=== PATIENT | male | born 1955 | race African-American/Black ===

== ENCOUNTER 2017-11-27 10:35 | Emergency (ER) | payer OTHER ==
[~2017-11-27] VITALS: Ht 188 cm; Wt 113.6 kg
[~2017-11-27 10:35] MED LIST: AMBIEN 10MG10 MG PO; NIASPAN 500MG500 MG; NIASPAN1000 MG PO; NORCO 325 MG-101 TAB; NORCO 325 MG-7.1 TAB PO; NORVASC 10MG10 MG PO; TENORMIN100 MG; [UNRECOGNIZED DRUG - REMARK]
[2017-11-27 10:37] VITALS: TEMP 97.7
[2017-11-27 11:29] LABS: COLLECTION METHOD CLEAN CATCH
[2017-11-27 11:35] LABS: BASO % 0.3 % (0.0-2.0); EOS # 0.1 (0.0-0.7); GRAN # 3.4 (1.4-6.5); GRAN % 55.3 % (42.2-75.2); HEMATOCRIT 43.9 % (42.0-52.0); HEMOGLOBIN 14.6 g/dl (13.5-18.0); LYMPH # 1.9 (1.2-3.4); LYMPH % 31.1 % (20.0-51.0); MEAN CELL VOLUME 86 fl (80.0-100.0); MEAN CORPUSCULAR HEMOGLOBIN 29 pg (27.0-31.0); MEAN CORPUSCULAR HGB CONC 33 g/dl (33.0-37.0); MEAN PLATELET VOLUME 10.8 fl (7.4-10.4); MONO # 0.7 (0.1-0.6); PLATELET COUNT 164 K/mm3 (130-400); REDCELL DISTRIBUTION WIDTH-CV 13.2 % (11.5-14.5)
[2017-11-27 11:39] LABS: PH 6 (5-8); SQUAMOUS EPITHELIAL None Seen /hpf; URINE APPEARANCE Clear; URINE BACTERIA None Seen /hpf; URINE BILIRUBIN Negative (NEGATIVE); URINE BLOOD Negative (NEGATIVE); URINE COLOR Yellow; URINE GLUCOSE Negative (NEGATIVE); URINE KETONE Negative (NEGATIVE); URINE LEUKOCYTE ESTERASE Negative (NEGATIVE); URINE NITRATE Negative (NEGATIVE); URINE PROTEIN(semi-quant) Negative (NEGATIVE); URINE RBC 0-2 /hpf; URINE UROBILINOGEN Negative (NEGATIVE)
[2017-11-27 11:42] LABS: ALANINE AMINOTRANSFERASE 48 U/L (21-72); ALBUMIN 4.6 gm/dL (3.5-5.0); ALKALINE PHOSPHATASE 67 U/L (50-136); ANION GAP 9 mmol/L (7-16); AST,SGOT 51 U/L (15-37); BILIRUBIN,TOTAL 0.4 mg/dL (0.0-1.0); BLOOD UREA NITROGEN 15 mg/dL (9-20); CALCIUM 9.4 mg/dL (8.4-10.2); CARBON DIOXIDE 24 mmol/L (22-30); CHLORIDE 105 mmol/L (98-107); CREATININE, serum 1.24 mg/dL (0.66-1.25); GLUCOSE 147 mg/dL (74-106); POTASSIUM 3.5 mmol/L (3.4-5.0); SODIUM 138 mmol/L (137-145)
[2017-11-27] MEDS ORDERED: ADVIL200 MG PO (11:42)
[2017-11-27 11:43] LABS: C-REACTIVE PROTEIN < 0.5 mg/dL (0.0-0.9)
[2017-11-27] MEDS ORDERED: FLOMAX 0.40.4 MG/CAP PO (11:43)
[2017-11-27] MEDS ORDERED: BACTRIM 400 MG-1 TAB PO (11:43)
[2017-11-27 12:55] VITALS: BP 135/69; PULSE 68
== END 2017-11-27 13:09 | disposition home or self-care (01) ==
LOC: COL.ER 10:35
PROVIDERS: Emergency Medicine
DX: R10.31 Right lower quadrant pain (principal); R33.9 Retention of urine, unspecified; I10 Essential (primary) hypertension; Z87.448 Personal history of other diseases of urinary system
CPT/HCPCS: A4314; J1170; J2405; J7030

== ENCOUNTER → 2019-10-07 | Outpatient (CLI) | payer MEDICARE, OTHER ==
[~2019-10-07] MED LIST changes: +ADVIL200 MG PO; +BACTRIM 400 MG-1 TAB PO; +FLOMAX 0.40.4 MG/CAP PO
== END ==
LOC: COL.VAS 08:34
DX: R94.31 Abnormal electrocardiogram [ECG] [EKG] (principal)

== ENCOUNTER → 2020-06-08 | Outpatient (CLI) | payer MEDICARE, OTHER | LOC: COL.RAD 12:21 | DX: Z01.812 Encounter for preprocedural laboratory examination (principal); D3A.00 Benign carcinoid tumor of unspecified site; K56.699 Other intestinal obstruction unspecified as to partial versus complete obstruction; K76.9 Liver disease, unspecified; N40.0 Benign prostatic hyperplasia without lower urinary tract symptoms; N32.89 Other specified disorders of bladder; K63.89 Other specified diseases of intestine | CPT/HCPCS: Q9967 ==

== ENCOUNTER 2024-07-22 12:32 | Day surgery (SDC) | payer MEDICARE ==
[~2024-07-22] VITALS: Ht 188 cm; Wt 105.5 kg
[~2024-07-22 12:32] MED LIST changes: +LR 1,000 ML IV SCH; +Ondansetron 4 MG/2 ML VIAL IV PRN
[2024-07-22] MEDS ORDERED: GLUCOPHAGE500 MG/TAB PO (13:23)
[2024-07-22] MEDS ORDERED: MASON NATURAL2000 IU PO (13:24)
[2024-07-22] MEDS ORDERED: LEXAPRO 10MG10 MG PO (13:24)
[2024-07-22] MEDS ORDERED: ALDACTONE 25MG25 M1 PO (13:25)
[2024-07-22] MEDS ORDERED: CRESTOR 10MG10 MG PO (13:25)
[2024-07-22] MEDS ORDERED: COZAAR100 MG PO (13:26)
[2024-07-22] MEDS ORDERED: ZYLOPRIM 300MG300 MG PO (13:26)
[2024-07-22 13:29] VITALS: BP 144/92; PULSE 80; TEMP 96.9
[2024-07-22 14:05] VITALS: BP 126/93; PULSE 74; TEMP 97
[2024-07-22 14:20] VITALS: BP 117/84; PULSE 68
[2024-07-22 14:30] VITALS: BP 133/83; PULSE 62
--- NOTE | 2024-07-22 14:40 | NUR ---
1405 RETURNS TO ROOM 4 PER CART. AWAKE, ALERT. RESP UNLABORED. AMBULATES TO RECLINER WITH STANDBY ASSIST. DENIES NAUSEA, AB/CHEST PAIN OR DYSPHAGIA. VITAL SIGNS OBTAINED. CALL LIGHT AT SIDE. IN ROOM 1420 T[address] PO JUICE AND MUFFIN WITHOUT NAUSEA. SWALLOWS WITHOUT DIFFICULTY 1425 DISCHARGE INSTRUCTIONS REVIEWED. PATIENT VERBALIZES UNDERSTANDING. COPY PROVIDED IN DISCHARGE FOLDER [address] DEMARCO HERE TO SEE PATIENT
== END 2024-07-22 14:40 | disposition home or self-care (01) ==
LOC: SDCO 12:32
DX: R19.7 Diarrhea, unspecified (principal); K21.9 Gastro-esophageal reflux disease without esophagitis; K92.1 Melena; G47.33 Obstructive sleep apnea (adult) (pediatric); I10 Essential (primary) hypertension; Z79.899 Other long term (current) drug therapy; Z85.060 Personal history of malignant carcinoid tumor of small intestine
CPT/HCPCS: J2704; J7120